=== PATIENT | female | born 1960 | race African-American/Black ===

== ENCOUNTER 2019-11-20 11:24 | Emergency (ER) | payer OTHER ==
[~2019-11-20] VITALS: Ht 160 cm; Wt 70.8 kg
[~2019-11-20 11:24] MED LIST: CARAFATE 1 GM TA1 G1 PO; CIPRO250 M1 PO; LISINOPRIL-HCT1 EAC1 PO; LOMOTIL TABLET1 EACH PO; NEXIUM 40 MG CA40 M1 PO; NORCO 5-325 TA1 EACH PO; PENICILLIN VK500 M1 PO; PEPCID40 MG PO; PHENERGAN 25 MG25 M1 PO; PHENERGAN 25 MG25 MG PO; ZOFRAN ODT4 MG PO
[2019-11-20] MEDS ORDERED: LISINOPRIL-HCT1 EAC2 PO (11:46)
[2019-11-20] MEDS ORDERED: PANTOPRAZOLE SO40 M1 PO (11:46)
[2019-11-20] MEDS ORDERED: LEVO-T50 MCG PO (11:47)
[2019-11-20] MEDS ORDERED: CLARITIN10 MG PO (13:33)
[2019-11-20] MEDS ORDERED: CARAFATE 11 GM/10 M1 PO (13:33)
[2019-11-20 13:46] VITALS: BP 162/93
== END 2019-11-20 13:44 | disposition home or self-care (01) ==
LOC: ER 11:24
DX: J02.9 Acute pharyngitis, unspecified (principal); I10 Essential (primary) hypertension; K21.9 Gastro-esophageal reflux disease without esophagitis; F17.210 Nicotine dependence, cigarettes, uncomplicated; Z79.899 Other long term (current) drug therapy